=== PATIENT | male | born 1980 | race Caucasian/White ===

== ENCOUNTER 2018-05-01 18:00 | Emergency (ER) | payer OTHER ==
[2018-05-01 18:28] LABS: BASOPHILS % (AUTO) 0.3 %; EOSINOPHILS % (AUTO) 0.4 %; HGB - HEMOGLOBIN 13.8 g/dL (14.0-18.0); LYMPHOCYTES # (AUTO) 1.9 10^3/uL (1.5-3.5); LYMPHOCYTES % (AUTO) 21.6 %; MEAN CORPUSCULAR HEMOGLOBIN 31.1 pg (27.0-31.0); MEAN CORPUSCULAR HGB CONC 33.5 g/dL (32.0-36.0); MEAN PLATELET VOLUME 8.6 fL (7.4-11.4); MONOCYTES # (AUTO) 0.7 10^3/uL (0.0-1.0); MONOCYTES % (AUTO) 7.6 %; NEUTROPHILS # (AUTO) 6.2 10^3/uL (1.5-6.6); NEUTROPHILS % (AUTO) 70.1 %; PLT - PLATELET COUNT 217 10^3/uL (130-450); RED BLOOD COUNT 4.44 10^6/uL (4.70-6.10); RED CELL DISTRIBUTION WIDTH 13.5 % (12.0-15.0); WHITE BLOOD COUNT 8.8 x10^3/uL (4.8-10.8)
[2018-05-01 18:42] LABS: ALBUMIN 4.7 g/dL (3.2-5.5); ALBUMIN/GLOBULIN RATIO 1.8 (1.0-2.2); BILIRUBIN,TOTAL 1.6 mg/dL (0.2-1.0); CALCIUM 9.3 mg/dL (8.5-10.3); CREATININE 1.4 mg/dL (0.6-1.2); TOTAL PROTEIN 7.3 g/dL (6.7-8.2)
--- NOTE | 2018-05-01 21:10 | XRAY Report ---
Reason: CP Procedure Date: 05/01/2018 Accession Number: [id number] / [id number] Procedure: XR - Chest 1 View X-Ray CPT Code: 46823 FULL RESULT: EXAM: CHEST RADIOGRAPHY EXAM DATE: 05/01/2018 09:00 PM. CLINICAL HISTORY: CP. COMPARISON: None. TECHNIQUE: 1 view. FINDINGS: Lungs/Pleura: No focal opacities evident. No pleural effusion. No pneumothorax. Mediastinum: Within exam limitations, the cardiomediastinal contour is normal. Other: None. IMPRESSION: Negative chest RADIA
--- NOTE | 2018-05-01 21:21 | ED Physician Documentation ---
PD HPI CHEST PAIN - Stated complaint Stated Complaint: CHEST TIGHTNESS - Chief complaint Chief Complaint: Cardiac - History obtained from History obtained from: Patient - History of Present Illness Timing - onset: How many hours ago (12) Timing - onset during: Rest Timing - duration: Hours (3) Timing - details: Gradual onset Pain level max: 3 Pain level now: 2 Severity Comments: mild Quality: Pressure Location: Left chest Radiation: No: Jaw, Neck, Back, Abdominal Improved by: Nothing Worsened by: Other (nothing) Associated symptoms: Feeling faint / dizzy (New exercize regimen, poor hydration) Review of Systems Ten Systems: 10 systems reviewed and negative Constitutional: reports: Reviewed and negative Eyes: reports: Reviewed and negative Ears: reports: Reviewed and negative Nose: reports: Reviewed and negative Throat: reports: Reviewed and negative Cardiac: reports: Reviewed and negative Respiratory: reports: Reviewed and negative GI: reports: Reviewed and negative : reports: Reviewed and negative Skin: reports: Reviewed and negative Musculoskeletal: reports: Reviewed and negative Neurologic: reports: Reviewed and negative Psychiatric: reports: Reviewed and negative Endocrine: reports: Reviewed and negative Immunocompromised: reports: Reviewed and negative PD PAST MEDICAL HISTORY - Past Medical History Other Past Medical History: Reviewed and not pertinent - Past Surgical History Other past surgical history: Reviewed and not pertinent - Present Medications Home Medications: Ambulatory Orders Medication Instructions Recorded Confirmed No Known Home Medications 05/01/18 05/01/18 - Allergies Allergies/Adverse Reactions: Allergies Allergy/AdvReac Type Severity Reaction Status Date / Time No Known Drug Allergies Allergy Verified 05/01/18 18:15 - Living Situation Living Situation: reports: With family Living Arrangement: reports: At home - Social History Additional Social History: Reviewed and not pertinent - Family History Family history: reports: Other (Reviewed and not pertinent) PD ED PE NORMAL - Vitals Vital signs reviewed: Yes - General General: Alert and oriented X 3, No acute distress - HEENT HEENT: PERRL - Neck Neck: Supple, no meningeal sign - Cardiac Cardiac: RRR, No murmur - Respiratory Respiratory: Clear bilaterally - Abdomen Abdomen: Normal bowel sounds, Soft, Non tender, Non distended - Derm Derm: Warm and dry - Extremities Extremities: No deformity - Neuro Neuro: Alert and oriented X 3 - Psych Psych: Normal mood, Normal affect Results - Vitals Vitals: Vital Signs - 24 hr 05/01/18 05/01/18 18:09 19:28 Temperature 36.5 C 36.7 C Heart Rate 76 76 Respiratory 15 16 Rate Blood Pressure 131/78 H 112/58 L O2 Saturation 98 98 Oxygen O2 Source Room air - EKG (time done) 1807 Rate: Rate (enter#) (79) Rhythm: NSR [place]: Normal Intervals: Normal [place] QRS: Normal Ischemia: Normal ST segments. No: T wave inversion - Labs Labs: Laboratory Tests 05/01/18 05/01/18 05/01/18 18:20 18:20 18:20 WBC 8.8 RBC 4.44 L Hgb 13.8 L Hct 41.3 L MCV 93.0 MCH 31.1 H MCHC 33.5 RDW 13.5 Plt Count 217 MPV 8.6 Neut # (Auto) 6.2 Lymph # (Auto) 1.9 [place] # (Auto) 0.7 Eos # (Auto) 0.0 Baso # (Auto) 0.0 Absolute Nucleated RBC 0.01 Nucleated RBC % 0.1 Sodium 135 Potassium 3.4 L Chloride 98 L Carbon Dioxide 23 Anion Gap 14.0 H BUN 16 Creatinine 1.4 H Estimated GFR (MDRD) 58 L Glucose 70 Calcium 9.3 Total Bilirubin 1.6 H AST 36 ALT 29 Alkaline Phosphatase 41 L Troponin I < 0.04 Total Protein 7.3 Albumin 4.7 Globulin 2.6 Albumin/Globulin Ratio 1.8 Lipase 33 - Rads (name of study) Chest Xray Radiology: Final report received, Other (WNL) PD MEDICAL DECISION MAKING - ED course Complexity details: reviewed results, re-evaluated patient, considered differential, d/w patient, d/w family ED course: 37-year-old male with chest pain and lightheadedness. Patient with clinical evidence of dehydration including elevated creatinine. Given patient's increased exercise regimen patient is encouraged to take additional fluids by p.o. Patient also referred to PCP for recheck of his creatinine. No evidence of ACS with a normal EKG, negative troponin and chest x-ray. Patient is PE RC negative. No clinical indication of pulmonary embolism or dissection. Patient discharged with primary care follow-up. Departure - Departure Clinical Impression: Dehydration, Acute kidney injury Chest pain Qualifiers: Chest pain type: unspecified Qualified Code(s): R07.9 - Chest pain, unspecified Condition: Good Instructions: Injury Acute Kidney Dc, ED Dehydration Ch, ED Chest Pain [facility]O Ch Follow-Up: ANDRES BALDWIN MD [Primary Care Provider] - Comments: Rehydrate with sports drinks and water. Follow-up with your primary care provider regarding kidney function. Creatinine level is currently 1.4 and should be rechecked within 1 week.Return with worsening symptoms.
[2018-05-01 21:50] VITALS: BP 124/72
== END 2018-05-01 21:54 | disposition home or self-care (01) ==
LOC: ED 18:00
DX: E86.0 Dehydration (principal); N17.9 Acute kidney failure, unspecified; R07.9 Chest pain, unspecified
CPT/HCPCS: 36415; 71045; 80053; 83690; 84484; 85025; 93005; 99283